=== PATIENT | female | born 1950 | race Asian ===

== ENCOUNTER 2017-02-27 12:10 | Outpatient (CLI) | payer OTHER | END 2017-02-27 12:12 | disposition short-term general hospital (02) | LOC: AMB 12:10 | DX: R07.89 Other chest pain (principal); R06.09 Other forms of dyspnea | CPT/HCPCS: A0425; A0427 ==

== ENCOUNTER 2017-02-27 12:13 | Emergency (ER) | payer OTHER ==
[~2017-02-27] VITALS: Ht 165.1 cm; Wt 77.1 kg
[2017-02-27 12:46] LABS: POTASSIUM 4.1 mmol/L (3.6-5.2); SODIUM 138 mmol/L (136-145)
[2017-02-27 12:47] LABS: PLATELET COUNT 318 K/uL (152-353)
[2017-02-27 13:00] VITALS: TEMP 97.9
[2017-02-27 13:30] VITALS: BP 124/67
== END 2017-02-27 13:45 | disposition home or self-care (01) ==
LOC: ED 12:13
DX: R07.89 Other chest pain (principal); R00.1 Bradycardia, unspecified
CPT/HCPCS: 36415; 80053; 82550; 84484; 85027; 86318; 93005; 99284

== ENCOUNTER 2017-11-19 13:39 | Inpatient (IN) | payer OTHER ==
[~2017-11-19] VITALS: Ht 165.1 cm; Wt 85.3 kg
[2017-11-19 14:55] VITALS: BP 141/76; TEMP 98.1; Ht 165.1 cm; Wt 85.3 kg
--- NOTE | 2017-11-19 15:15 | NUR ---
PT ADMITTED TO THE FLOOR WITH LLQ PAIN. ABDOMEN SOFT WITH TENDERNESS UPON PALPATAION TO THE AREA. PT ALERT AND ORIENTED. REFER TO ASSESSMENT 1 AND 2. PT ORIENTED TO ROOM AND CALL LIGHT IN REACH. SR UP X2. BED IN LOWEST POSITION. WILL CONTINUE TO MONITOR.
[2017-11-19 15:47] LABS: PLATELET COUNT 289 K/uL (152-353)
[2017-11-19 16:00] VITALS: BP 141/76; TEMP 98.1
[2017-11-19 16:00] LABS: POTASSIUM 4.2 mmol/L (3.6-5.2)
[2017-11-19 20:00] VITALS: BP 114/43; TEMP 98.4
[2017-11-20] VITALS (7 sets, daily range): BP systolic 100–129; BP diastolic 51–61; TEMP 98.2–98.9
[2017-11-21 04:00] VITALS: BP 116/52; TEMP 97.9
[2017-11-21 06:08] LABS: PLATELET COUNT 255 K/uL (152-353)
[2017-11-21 08:00] VITALS: BP 121/67; TEMP 98
== END 2017-11-21 08:47 | disposition home or self-care (01) | DRG 392 ==
LOC: MED/SURG 13:39
PROVIDERS: ADMIT Internal Medicine
DX: K57.92 Diverticulitis of intestine, part unspecified, without perforation or abscess without bleeding (principal); I10 Essential (primary) hypertension; K57.90 Diverticulosis of intestine, part unspecified, without perforation or abscess without bleeding; E86.0 Dehydration; K21.9 Gastro-esophageal reflux disease without esophagitis; M15.8 Other polyosteoarthritis
CPT/HCPCS: 36415; 80053; 81000; 82150; 83690; 85027; 96360; 96361; 96367; 96375; J1956; J2405; J3490

== ENCOUNTER 2021-11-28 12:23 | Outpatient (CLI) | payer OTHER | END 2021-11-28 19:45 | disposition home or self-care (01) | LOC: NM 12:23 | PROVIDERS: ATTEND Physician Assistant | DX: I26.99 Other pulmonary embolism without acute cor pulmonale (principal) | CPT/HCPCS: A9540; A9567 ==